=== PATIENT | female | born 1950 | race Hispanic/Latino ===

== ENCOUNTER 2019-04-20 10:54 | Outpatient (RCR) | payer MEDICARE, BC | END 2019-05-03 | LOC: PT 10:54 | PROVIDERS: ATTEND Specialist | DX: M17.0 Bilateral primary osteoarthritis of knee (principal); M25.562 Pain in left knee; M25.561 Pain in right knee; M25.662 Stiffness of left knee, not elsewhere classified; M25.661 Stiffness of right knee, not elsewhere classified; M62.81 Muscle weakness (generalized); R26.2 Difficulty in walking, not elsewhere classified ==

== ENCOUNTER 2019-09-14 06:05 | Observation (INO) | payer MEDICARE, BC ==
[2019-09-13 09:39] LABS: BASOPHILS % 0.5 % (0.0-1.0); EOSINOPHILS # (AUTO) 0.1 (0.0-0.4); EOSINOPHILS % 1.9 % (0.0-6.0); HEMATOCRIT 34.6 % (34.2-44.1); HEMOGLOBIN 11.2 g/dL (12.0-16.0); LYMPHOCYTES % 16.4 % (18.0-39.1); MEAN CORPUSCULAR HEMOGLOBIN 26.8 pg (28-32); MEAN CORPUSCULAR HGB CONC 32.4 g/dL (31-35); MEAN CORPUSCULAR VOLUME 82.8 fL (81-99); MONOCYTES # (AUTO) 0.4 (0.2-0.8); NEUTROPHILS # (AUTO) 4.7 (2.1-6.9); NEUTROPHILS % 73.7 % (38.7-80.0); PLATELET COUNT 282 x10e3/uL (140-360); RED BLOOD COUNT 4.18 x10e6/uL (3.6-5.1); RED CELL DISTRIBUTION WIDTH 13.2 % (11.7-14.4)
--- NOTE | 2019-09-13 10:35 | Diagnostic Imaging Report ---
Exam: Chest radiograph Clinical History: Preoperative clearance Comparison: May 14, 2019 Findings: The cardiomediastinal silhouette and lungs are normal. The regional skeleton and soft tissue are unremarkable. There is no evidence of pleural effusion or pneumothorax. Impression: No radiographic evidence of acute cardiopulmonary disease. Signed by: Dr. Miles Copeland MD on 09/13/2019 10:33 AM
[~2019-09-14 06:05] MED LIST: ALENDRONATE SOD70 MG PO; BONE HEALTH PO; CYMBALTA30 MG PO; GABAPENTIN100 MG PO; IBUPROFEN400 MG PO; LISINOPRIL10 MG PO; OMEPRAZOLE40 MG PO; SIMVASTATIN20 MG PO; ULTRAM 50MG50 MG PO
[2019-09-14] MEDS ORDERED: CELECOXIB 200 MG CAP ONE (06:29)
[2019-09-14] MEDS ORDERED: CEFAZOLIN SOD 1 GM/NS 50ML 100 ML IV ONE (06:30)
[2019-09-14] MEDS ORDERED: DEXAMETHASONE SOD PHOS 10 MG/1 ML VIAL ONE (06:30)
[2019-09-14] MEDS ORDERED: GABAPENTIN 300 MG CAP ONE (06:30)
[2019-09-14] MEDS ORDERED: VANCOMYCIN HCL 1,000 MG ONE (06:50)
[2019-09-14] MEDS ORDERED: BACITRACIN 50,000 UNIT VIAL ONE (06:50)
[2019-09-14] MEDS ORDERED: SODIUM CHLORIDE 0.9% 500ML 500 ML ONE (06:52)
[2019-09-14] MEDS ORDERED: TRANEXAMIC ACID 1,000 MG/10 ML ML ONE (06:53)
[2019-09-14] MEDS ORDERED: ROPIVACAINE 246.25 MG, EPINEPHRINE HCL 1:1000 1ML 0.5 MG, CLONIDINE HCL 0.08 MG, KETORO... INJ ONE ×5 (08:00)
[2019-09-14] MEDS: SODIUM CHLORIDE 0.9% 1000ML 1,000 ML IV SCH ×2 (08:39→18:39)
[2019-09-14] MEDS ORDERED: HYDROCODONE/APAP 5MG-325MG TAB PO PRN (08:45)
[2019-09-14] MEDS ORDERED: PROMETHAZINE HCL (IM) 25 MG/ML VIAL IM PRN (08:45)
[2019-09-14] MEDS ORDERED: HYDROCODONE/APAP 7.5MG-325MG 1 EA TAB PO PRN (08:45)
[2019-09-14] MEDS ORDERED: ONDANSETRON HCL INJ 2MG/ML 2ML 2 MG/ML VIAL IV PRN (08:45)
[2019-09-14] MEDS ORDERED: DOCUSATE SODIUM 100 MG CAP PO PRN (08:45)
[2019-09-14] MEDS ORDERED: DIPHENHYDRAMINE HCL INJ 50 MG/ML VIAL IM/IV PRN (08:45)
[2019-09-14] MEDS ORDERED: CELECOXIB 100 MG CAP PO SCH (09:00)
--- NOTE | 2019-09-14 09:35 | Diagnostic Imaging Report ---
Left knee, 2 views Clinical indication: Postop Comparison: None Findings: Patient is status post left total knee arthroplasty. Alignment is anatomic. No periprosthetic fractures are identified. Signed by: Harley Bolanos MD on 09/14/2019 9:33 AM
[2019-09-14] MEDS ORDERED: FENTANYL CITRATE/PF 100MCG/2 ML INJ ONE ×2 (09:55→18:55)
--- NOTE | 2019-09-14 14:30 | Operative Report ---
DATE OF PROCEDURE: 09/14/2019 SURGEON: Jassi Angel MD TELEPHONE MAINTAINER: Matt Montalvo, certified PA. PREOPERATIVE DIAGNOSIS: Osteoarthritis, left knee. POSTOPERATIVE DIAGNOSIS: Osteoarthritis, left knee. PROCEDURE: Left total knee arthroplasty. INDICATIONS: The patient is a 69-year-old lady with a long history of left knee pain. Clinic exam and x-rays are consistent with osteoarthritis. The treatment options have been discussed. We plan on a left total knee replacement. The risks and benefits have been discussed. She has been through a right knee replacement. She states she understands the plan of care and wishes to proceed. DESCRIPTION OF PROCEDURE: The patient was brought to the operating room and placed under general anesthetic. She received prophylactic antibiotics, a regional block and tranexamic acid in the holding area. Her left lower extremity was prepped and draped in a sterile manner. A preoperative time-out was performed. The extremity was exsanguinated and a proximal tourniquet was inflated to 300 mmHg. An anterior incision with a medial parapatellar arthrotomy was performed. Blood-tinged synovial fluid and a moderate amount of synovitis was encountered. Soft tissue releases were performed to bring the knee up into flexion with the patella everted. The cruciate ligaments, meniscal remnants, and marginal osteophytes were removed. A [employer] Persona knee system was used. An extramedullary cutting guide was used to make the proximal tibial cut. The tibial base plate was a size C. The central fin punch was drilled and impacted. Attention was directed towards the distal femur. An intramedullary cutting guide was used to resect the distal femur in 6 degrees of valgus and rotation referencing off a combination of landmarks including Whitesides line, the epicondylar axis and the posterior condyles. The femoral component was a size #5. The anterior and posterior cuts were made. A trial reduction was performed. A 10 mm medial congruent tibial insert provided appropriate soft tissue balancing in full extension and 90 degrees of flexion. The patella was resurfaced with a 29 mm x 8.5 mm patellar button. The thickness was checked before and after, and was right around 23 mm. Patellar tracking was concentric. All of the trial implants were removed. A 100 mL premixed pericapsular JOSE injection was placed into the surrounding soft tissue. The knee was thoroughly irrigated with a shower tip pulsatile lavage. All bone cuts had been irrigated with a spray mixture of diluted polymyxin and vancomycin spray. The components were cemented into place using a single mix of high viscosity Biomet cement. The cement was preloaded with antibiotics. Care was taken to remove extravasated cement. The wound was further irrigated while the cement cured. The arthrotomy was closed with interrupted #1 Ethibond. A 500 mg of vancomycin powder was sprinkled into the joint prior to the deep closure. The knee was put through flexion and extension to ensure a secure closure. The skin was closed with subcuticular Vicryl and patsy. A sterile Aquacel bandage was applied. An Azam wrap was applied. The patient was extubated and transported to the recovery room in stable condition. Blood loss was minimal. All needle and sponge counts were correct. Jassi Angel MD DR/RYLAN /[id number]
--- NOTE | 2019-09-14 14:50 | NUR ---
PT ARRIVED TO UNIT RESP EVEN AND UNLABORED AND NO DISTRESS NOTED AT THIS TIME, PT IS ABLE TO MAKE NEEDS KNOWN, PT IS ORIENT ED O TO ROOM AND CALL LIGHT BED IN LOWEST POSITION. BED RAILS UP X2, CALL LIGHT IN REACH.
[2019-09-14 15:00] VITALS: BP 92/64
[2019-09-14 16:32] VITALS: BP 101/63
[2019-09-14] MEDS: ASPIRIN 325 MG TAB PO SCH (17:00)
--- NOTE | 2019-09-14 17:00 | NUR ---
PT AMB WITH PHYSICAL THERAPY, TOLERATED WELL.
[2019-09-14] MEDS: CELECOXIB 200 MG CAP PO SCH (17:41)
[2019-09-14] MEDS: CEFAZOLIN SOD 1 GM/NS 50ML 50 ML IV SCH ×2 (17:43→21:51)
[2019-09-14] MEDS ORDERED: CEFAZOLIN SOD 1 GM VIAL ONE (18:21)
[2019-09-14] MEDS ORDERED: SEVOFLURANE INHAL SOLN 250 ML PEN BTL ONE (18:21)
[2019-09-14] MEDS ORDERED: PROPOFOL IV EMULSION 10 MG/ML 20 ML VIAL ONE (18:21)
[2019-09-14] MEDS ORDERED: ONDANSETRON HCL INJ 2MG/ML 2ML 2 MG/ML VIAL ONE (18:21)
[2019-09-14] MEDS ORDERED: LIDOCAINE HCL 2% LOCAL INJ 5 ML SDV VIAL INJ ONE (18:21)
[2019-09-14] MEDS ORDERED: ROPIVACAINE 0.5% 5 MG/ML 30 ML SDV ONE (18:46)
--- NOTE | 2019-09-14 19:10 | NUR ---
pt received. pt assessed. no ss of distress noted at time. cpm in place. left knee drsg cdi. will cont to follow poc. call brasher within reach.
--- NOTE | 2019-09-14 19:15 | NUR ---
walking rounds complete. pt stable at this time.
[2019-09-14 20:00] VITALS: BP 91/50
[2019-09-14 20:41] VITALS: BP 91/50
[2019-09-14] MEDS ORDERED: ZOLPIDEM TARTRATE 5 MG TAB PO PRN (21:00)
[2019-09-14] MEDS: KETOROLAC TROMETHAMINE 30 MG/ML VIAL IV PRN (22:05)
[2019-09-15] VITALS: BP 101/60
[2019-09-15] MEDS: SODIUM CHLORIDE 0.9% 1000ML 1,000 ML IV SCH (04:39)
--- NOTE | 2019-09-15 04:40 | NUR ---
pt resting. no ss of distress noted. call brasher within reach.
[2019-09-15] MEDS: CEFAZOLIN SOD 1 GM/NS 50ML 50 ML IV SCH (05:26)
[2019-09-15 06:20] LABS: HEMATOCRIT 30.6 % (34.2-44.1); HEMOGLOBIN 9.7 g/dL (12.0-16.0)
--- NOTE | 2019-09-15 06:50 | NUR ---
cpm placed at time. no ss of distress noted. call brasher within reach. will notify oncoming nurse.
--- NOTE | 2019-09-15 07:00 | NUR ---
RECEIVED PATIENT AWAKE RESTING IN BED NO S/S OF DISTRESS. BED LOW, WHEELS LOCKED, SIDE RAILS X2. CALL LIGHT IN REACH WILL CONTINUE TO MONITOR PATIENT.
[2019-09-15 08:00] VITALS: BP 128/66
--- NOTE | 2019-09-15 08:43 | NUR ---
DR BELTRAN OFFICE PREARRANGED FOLLOWING DISCHARGE PLAN OF:GOING HOME [id number] [facility] WITH [facility] CONFIRMED WITH SANDIE [phone] DME 3 IN ONE COMMODE, CPM AND ROLLING WALKER WITH WHEELS. PROVIDED BY [facility] [phone] ELISHA GRULLON SIGNED AND ON CHART COPY LEFT WITH PATIENT GAVE CARD FOR QUESTIONS AND OR CONCERNS.
[2019-09-15] MEDS ORDERED: ONDANSETRON HCL 4 MG ORAL DISINTEGRATING TAB PO PRN (09:15)
[2019-09-15] MEDS: CELECOXIB 200 MG CAP PO SCH (09:19)
[2019-09-15] MEDS: ASPIRIN 325 MG TAB PO SCH (09:19)
[2019-09-15 09:53] VITALS: BP 128/66
--- NOTE | 2019-09-15 10:34 | Consultation ---
DATE OF CONSULTATION: 09/15/2019 REASON FOR CONSULTATION: Medical management. HISTORY OF PRESENT ILLNESS: This is a 69-year-old woman, who was admitted to [facility] with diagnosis of advanced left knee osteoarthritis. During this hospitalization, the patient underwent successful left total knee arthroplasty performed by Dr. Jassi Angel. The patient tolerated the procedure quite well. The patient states her pain is well controlled. The patient states, four months ago, she underwent a right total knee replacement and convalesced adequately. The patient has already ambulated twice with therapy today. Blood work today revealed hemoglobin 9.7 g/dL. Hemoglobin 1 day prior to surgery was 11.2 g/dL. REVIEW OF SYSTEMS: GENERAL: Weight is stable. No fever or chills. HEENT: No headaches. No vision changes. CARDIOVASCULAR/RESPIRATORY: No chest pain. No short of breath. No cough. GI: No nausea, vomiting, or diarrhea. : Stack catheter has been removed. NEUROMUSCULAR: The patient states the pain in her knee is well controlled. ALLERGIES: NO KNOWN DRUG ALLERGIES. HOME MEDICATIONS: 1. Alendronate 70 mg weekly. 2. Ibuprofen 600 mg every 6 hours p.r.n. arthritic pain. 3. Lisinopril 20 mg daily. 4. Omeprazole 40 mg daily. 5. Simvastatin 20 mg at bedtime. 6. Tramadol 50 mg every 4 hours p.r.n. pain. 7. Xkio-spz-vxyyejo bone health vitamins 50 mg daily. SURGICAL HISTORY: 1. Left total knee replacement yesterday. 2. Right total knee replacement in May 2019. FAMILY HISTORY: Noncontributory. PAST MEDICAL HISTORY: 1. Hypertensive heart disease. 2. Hyperlipidemia. 3. Bilateral knee osteoarthritis. 4. GERD. 5. Osteoporosis. SOCIAL HISTORY: This woman is , lives with her . She is retired. No history of tobacco or alcohol use. PHYSICAL EXAMINATION: GENERAL: She is awake, alert, and fluent. She is a predominantly German speaker. She is in no obvious distress, very pleasant and cooperative with exam. Height 5 feet 2 inches, weight 148 pounds. Her is at bedside. VITAL SIGNS: Blood pressure is 128/66, pulse 72, respiratory rate 16, oxygen saturation 99% on room air, and temp 97.6. INTEGUMENT: Skin is warm and dry. No pallor, jaundice, or diaphoresis. HEENT: Anterior sclerae. Moist mucous membranes. NECK: Supple. CARDIOVASCULAR: Distant heart sounds. Regular rate and rhythm with S4 gallop. LUNGS: No rales. No rhonchi or wheezes. ABDOMEN: Benign. EXTREMITIES: The left knee surgical incision is currently dressed. She is wearing compression stockings in her bilateral lower extremities. NEUROLOGIC: Intact. No deficits. DIAGNOSES: 1. Status post left total knee replacement. 2. Hypertensive heart disease. 3. Postoperative anemia. PLAN: 1. Mobilize therapy. 2. Pain control. 3. Encourage incentive spirometer to reduce the risk of atelectasis. 4. The patient will likely be discharged home today. I would like to thank Dr. Jassi Angel for this generous consult. MD NICHOLE [place]/RYLAN /[id number]
[2019-09-15] MEDS: KETOROLAC TROMETHAMINE 30 MG/ML VIAL IV PRN (11:24)
[2019-09-15] MEDS ORDERED: IBUPROFEN400 MG PO (11:55)
[2019-09-15 11:56] VITALS: BP 146/79
--- NOTE | 2019-09-15 12:45 | NUR ---
REMOVED PATIENTS IV. CATHETER TIP INTACT AND PRESSURE DRESSING APPLIED.
--- NOTE | 2019-09-15 13:20 | NUR ---
PATIENT DISCHARGED FROM FACILITY. PATIENT GATHERED ALL PERSONAL BELONGINGS, DISCHARGE INSTRUCTIONS AND FOLLOW UP INFORMATION. PATIENT LEFT UNIT IN WHEELCHAIR AND WENT HOME VIA PRIVATE AUTO. NO S/S OF DISTRESS WHEN LEAVING FACILITY.
== END 2019-09-15 13:20 | disposition home or self-care (01) ==
LOC: OR 06:05 → PACU V 08:41 → MED/SURG 14:57
PROVIDERS: ADMIT Specialist; ATTEND Specialist
DX: M17.12 Unilateral primary osteoarthritis, left knee (principal); Z96.651 Presence of right artificial knee joint; Z88.6 Allergy status to analgesic agent; E78.00 Pure hypercholesterolemia, unspecified; K21.9 Gastro-esophageal reflux disease without esophagitis; D64.9 Anemia, unspecified; I11.9 Hypertensive heart disease without heart failure; Z01.810 Encounter for preprocedural cardiovascular examination; Z01.812 Encounter for preprocedural laboratory examination; Z01.811 Encounter for preprocedural respiratory examination
CPT/HCPCS: 27447; 36415 ×2; 71046; 73560; 85014; 85018; 85025; 86850; 86900; 93005; 96367; 96375; 96376; 97116 ×2; 97161; 97530; C1713 ×2; C1776 ×2; G0378 ×2; J0171; J0690 ×3; J1100; J1885 ×2; J2001; J2405; J2704; J2795; J3010; J3370; J7030; J7040; 96365; 96374

== ENCOUNTER → 2024-03-23 | Day surgery (SDC) | payer MEDICARE, BC ==
[~2024-03-23] MED LIST changes: +ACETAMINOPHEN 1000 MG/100 ML IV ONE; +ACETAMINOPHEN 1000 MG/100 ML IV PRN; +ASPIRIN 325 MG TAB PO SCH; +ASPIRIN81 MG PO; +CELECOXIB 100 MG CAP PO SCH; +DEXAMETHASONE SOD PHOS INJ 4 MG/ML SDV ONE; +DIPHENHYDRAMINE HCL INJ 50 MG/ML VIAL IV PRN; +DOCUSATE SODIUM 100 MG CAP PO PRN; +FENTANYL CITRATE/PF 100MCG/2 ML INJ ONE; +HYDROCODONE/APAP 5MG-325MG TAB PO PRN; +HYDROCODONE/APAP 7.5MG-325MG 1 EA TAB ONE; +HYDROCODONE/APAP 7.5MG-325MG 1 EA TAB PO PRN; +LIDOCAINE HCL 2% LOCAL INJ 5 ML SDV VIAL INJ ONE; +METHOCARBAMOL 100MG/1ML 10ML VIAL ONE; +ONDANSETRON HCL INJ 2MG/ML 2ML 2 MG/ML VIAL IV PRN; +ONDANSETRON HCL INJ 2MG/ML 2ML 2 MG/ML VIAL ONE; +PROPOFOL IV EMULSION 10 MG/ML 20 ML VIAL ONE; +ROPIVACAINE 246.25 MG, EPINEPHRINE HCL 1:1000 1ML 0.5 MG, CLONIDINE HCL 0.08 MG, KETORO... INJ ONE; +SEVOFLURANE INHAL SOLN 250 ML PEN BTL ONE; +SODIUM CHLORIDE 0.9% 1000ML 1,000 ML IV SCH; +SODIUM CHLORIDE 0.9% 500ML 500 ML ONE; +TRANEXAMIC ACID 20 ML ONE; +VITAMIN C1000 MG PO; +Vancomycin IV 500 MG ONE
[2024-03-23] MEDS: CEFAZOLIN SODIUM 2 GM ONE (06:38)
[2024-03-23] MEDS: LACTATED RINGER'S 1,000 ML ONE (06:38)
[2024-03-23] MEDS: GABAPENTIN 300 MG CAP ONE (06:39)
[2024-03-23] MEDS: CELECOXIB 200 MG CAP ONE (06:39)
[2024-03-23] MEDS: DEXAMETHASONE SOD PHOS 10 MG/1 ML VIAL ONE (06:39)
[2024-03-23] MEDS: FENTANYL CITRATE/PF 100MCG/2 ML INJ ONE (09:53)
[2024-03-23] MEDS: HYDROCODONE/APAP 7.5MG-325MG 1 EA TAB PO ONE (10:45)
[2024-03-23 13:15] VITALS: BP 121/71; PULSE 90; RESP 18; O2SAT 99
== END | disposition home health service (06) ==
LOC: OR 05:24 → PACU V 10:05 → UNDOADMOB 10:05
PROVIDERS: ATTEND Specialist
DX: M16.12 Unilateral primary osteoarthritis, left hip (principal); G89.29 Other chronic pain; I10 Essential (primary) hypertension; E78.5 Hyperlipidemia, unspecified; K21.9 Gastro-esophageal reflux disease without esophagitis; Z01.812 Encounter for preprocedural laboratory examination; Z79.82 Long term (current) use of aspirin; Z79.899 Other long term (current) drug therapy; Z96.653 Presence of artificial knee joint, bilateral
CPT/HCPCS: 72170; 86850; 86900; C1713; C1776; J0171; J1100; J1885; J2001; J2405; J2795; J2800; J3370; J7040